=== PATIENT | male | born 1990 | race African-American/Black ===

== ENCOUNTER 2017-04-20 10:00 | Emergency (ER) | payer SELFPAY ==
[2017-04-20] MEDS ORDERED: NO HOME MEDICATION (10:19)
[2017-04-20] MEDS ORDERED: NORCO 5-325 TA1 EACH PO (11:35)
== END 2017-04-20 11:55 ==
LOC: EDMED 10:00
PROC: 2W3LXYZ Immobilization of Right Lower Extremity using Other Device (ICD-10-PCS; principal; 2017-04-20)
DX: S89.91XA Unspecified injury of right lower leg, initial encounter (principal); F17.210 Nicotine dependence, cigarettes, uncomplicated; X50.1XXA Overexertion from prolonged static or awkward postures, initial encounter; Y93.67 Activity, basketball